=== PATIENT | female | born 1950 | race Two or more races ===

== ENCOUNTER → 2021-03-10 08:00 | Outpatient (CLI) | payer OTHER | END | disposition home or self-care (01) | LOC: LAB 08:00 → EDSTATUS 03-17 07:45 → SURH 03-17 07:45 | PROVIDERS: ATTEND Orthopaedic Surgery | DX: M17.12 Unilateral primary osteoarthritis, left knee (principal); U07.1 COVID-19; D68.8 Other specified coagulation defects; I10 Essential (primary) hypertension ==

== ENCOUNTER 2021-05-01 11:45 | Inpatient (IN) | payer OTHER ==
[~2021-05-01] VITALS: Ht 157.5 cm; Wt 71.7 kg
[2021-05-01] MEDS ORDERED: DAFLONEX-XL 11300 MG PO (14:54)
[2021-05-05] MEDS ORDERED: SYMBICORT 16010.2 GM (15:47)
[2021-05-05] MEDS ORDERED: ROSUVASTATIN CA10 MG (15:47)
[2021-05-05] MEDS ORDERED: FLONASE16 GM (15:47)
[2021-05-05] MEDS ORDERED: MONTELUKAST SOD10 MG (15:47)
[2021-05-08] MEDS ORDERED: CIPRO500 MG PO (07:56)
[2021-05-08] MEDS ORDERED: ELIQUIS2.5 MG PO (07:56)
[2021-05-08] MEDS ORDERED: PERCOCET 5-3251 EACH PO (07:56)
== END 2021-05-08 14:17 | disposition home or self-care (01) | DRG 470 ==
LOC: O/R 05-05 06:33 → SURH 05-05 11:45
PROVIDERS: ADMIT Orthopaedic Surgery; ATTEND Orthopaedic Surgery
PROC: 0SRD0J9 Replacement of Left Knee Joint with Synthetic Substitute, Cemented, Open Approach (ICD-10-PCS; principal; 2021-05-05 17:15)
DX: M17.12 Unilateral primary osteoarthritis, left knee (principal); D62 Acute posthemorrhagic anemia; M22.12 Recurrent subluxation of patella, left knee; E78.00 Pure hypercholesterolemia, unspecified; Z20.822 Contact with and (suspected) exposure to COVID-19